=== PATIENT | male | born 1970 | race Caucasian/White ===

== ENCOUNTER 2020-09-18 19:55 | Emergency (ER) | payer SELFPAY ==
[2020-09-18] MEDS ORDERED: NORMAL SALINE 1000 ML 1,000 ML IV ONE (20:16)
[2020-09-18] MEDS ORDERED: HYDROMORPHONE HCL INJ/PF 2 MG/ML AMPULE IV ONE (20:16)
[2020-09-18] MEDS ORDERED: ONDANSETRON HCL INJ/PF 4 MG/2 ML SDV IV ONE (20:16)
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
[2020-09-18 20:32] LABS: HEMATOCRIT 35.9 % (37.9-51.0); HEMOGLOBIN 12.2 g/dL (13.5-17.0); MEAN CORPUSCULAR HEMOGLOBIN 31.8 pg (27.0-33.4); MEAN CORPUSCULAR VOLUME 94 fl (80-97); PLATELET COUNT 268 10^3/uL (150-450); RED BLOOD COUNT 3.84 10^6/uL (4.35-5.55); RED CELL DISTRIBUTION WIDTH 13.3 % (11.5-14.0); WHITE BLOOD COUNT 21.5 10^3/uL (4.0-10.5)
[2020-09-18 20:43] LABS: ALBUMIN 3.7 g/dL (3.5-5.0); ALKALINE PHOSPHATASE 53 U/L (38-126); ANION GAP 6 (5-19); ASPARTATE AMINO TRANSFERASE 28 U/L (17-59); BILIRUBIN,TOTAL 0.4 mg/dL (0.2-1.3); BLOOD UREA NITROGEN 21 mg/dL (7-20); CALCIUM 9.1 mg/dL (8.4-10.2); CARBON DIOXIDE 26 mmol/L (22-30); CHLORIDE 107 mmol/L (98-107); GLUCOSE 79 mg/dL (75-110); POTASSIUM 3.4 mmol/L (3.6-5.0); TOTAL PROTEIN 6.1 g/dL (6.3-8.2)
[2020-09-18 20:51] LABS: ABSOLUTE LYMPHOCYTES# (MANUAL) 3.7 10^3/uL (0.5-4.7); ABSOLUTE MONOCYTES # (MANUAL) 1.1 10^3/uL (0.1-1.4); BASOPHILS % (MANUAL) 0 % (0-2); EOSINOPHILS % (MANUAL) 1 % (0-6); LYMPHOCYTES % (MANUAL) 17 % (13-45); MONOCYTES % (MANUAL) 5 % (3-13); SEGMENTED NEUTROPHILS % (MAN) 77 % (42-78); TOTAL CELLS COUNTED 100
[2020-09-18 20:52] LABS: PLATELET COMMENT ADEQUATE; RBC MORPHOLOGY COMMENT NORMO-CYTIC/CHROMIC
--- NOTE | 2020-09-18 21:13 | RADIOLOGY REPORT (SQ) ---
EXAM DESCRIPTION: TIBIA FIBULA RIGHT RadLex: XR TIBIA FIBULA 2 VIEWS Views: 2 CLINICAL HISTORY: 50 years Male; fall; COMPARISON: None. FINDINGS: Negative for acute fracture, dislocation, or radiopaque foreign body. Surgical screws consistent with previous ACL repair are noted. IMPRESSION: 1. No acute findings.
--- NOTE | 2020-09-18 21:15 | RADIOLOGY REPORT (SQ) ---
EXAM DESCRIPTION: Site: CT CERVICAL SPINE WITHOUT RP: CT CERVICAL SPINE WITHOUT IV CONTRAST CLINICAL HISTORY: 50 years Male; fall; TECHNIQUE: Noncontrast cervical spine CT with sagittal and coronal reconstructions. All CT scans at this facility use dose modulation, iterative reconstruction, and/or weight based dosing when appropriate to reduce radiation dose to as low as reasonably achievable. COMPARISON: None FINDINGS: No subluxation. Chronic degenerative changes are noted. C3-C4: Osteophytic ridging with bilateral foraminal stenosis. C5-C6: Previous ACDF C6-C7: Osteophytic ridging with left foraminal stenosis There is no acute fracture of the cervical spine. No epidural hematoma. IMPRESSION: 1. No acute cervical spine fracture 2. Or chronic degenerative changes. Previous C5-C6 ACDF.
--- NOTE | 2020-09-18 21:17 | RADIOLOGY REPORT (SQ) ---
EXAM DESCRIPTION: Site: CT HEAD WITHOUT RP: CT HEAD WITHOUT IV CONTRAST CLINICAL HISTORY: 50 years Male; fall; TECHNIQUE: Noncontrast CT head. All CT scans at this facility use dose modulation, iterative reconstruction, and/or weight based dosing when appropriate to reduce radiation dose to as low as reasonably achievable. COMPARISON: None. FINDINGS: Brain: Mcmahan matter, white matter, ventricles, and cisterns are within normal limits. No acute hemorrhage or mass effect. Sinuses: Visualized portions of paranasal sinuses and mastoids are clear. There is left nasal septal deviation with pneumatized jesus bullosa of the right middle turbinate. Calvarium: No acute calvarial fractures or focal lesion. IMPRESSION: 1. No acute intracranial findings.
--- NOTE | 2020-09-18 21:22 | RADIOLOGY REPORT (SQ) ---
EXAM DESCRIPTION: CT CHEST WITH IV CONTRAST COMPLETED DATE/TME: 09/18/2020 20:57 CLINICAL HISTORY: 50 years, Male, fall COMPARISON: None. TECHNIQUE: Axial images with IV contrast. Sagittal coronal reconstruction. Images stored on PACS. All CT scanners at this facility use dose modulation, iterative reconstruction, and/or weight based dosing when appropriate to reduce radiation dose to as low as reasonably achievable (ALARA). FINDINGS: Central pulmonary arteries and aorta are unremarkable. Mild enlargement thickening of the left ventricle. No generalized cardiomegaly. No suspicious mediastinal adenopathy or mediastinal hematoma. No evidence for pericardial effusion. Lungs are mildly hyperinflated. Question subtle emphysematous changes in the upper lung cotto. Trachea and central bronchi are dilated often seen with chronic lung disease. No acute lung or pleural abnormalities. No suspicious bony lesion. IMPRESSION: 1. Hyperinflation suspected mild centrilobular emphysema. 2. No acute findings in the chest. TECHNICAL DOCUMENTATION: Quality ID # [id number]: Final reports with documentation of one or more dose reduction techniques (e.g., Automated exposure control, adjustment of the mA and/or kV according to patient size, use of iterative reconstruction technique) copyright 2010 [email or web address]- All Rights Reserved
--- NOTE | 2020-09-18 21:29 | RADIOLOGY REPORT (SQ) ---
EXAM DESCRIPTION: CT ABDOMEN PELVIS WITH IV CONTRAST COMPLETED DATE/TME: 09/18/2020 20:57 CLINICAL HISTORY: 50 years, Male, fall COMPARISON: None. TECHNIQUE: Study performed with 87 mm of Omnipaque 350. Sagittal coronal reconstruction. Images stored on PACS. All CT scanners at this facility use dose modulation, iterative reconstruction, and/or weight based dosing when appropriate to reduce radiation dose to as low as reasonably achievable (ALARA). FINDINGS: Liver, spleen, pancreas, biliary system, adrenal glands, kidneys, periarticular regions are unremarkable. Early atherosclerotic aorta. No suspicious dilatation of narrowing. Distended stomach with fluid. Mildly increased fluid in the small bowel loops. Colonic loops with mild increased stool in without acute findings. No suspicious acute spine abnormality. Nonprominent degenerative changes at L4-5. CT of the pelvis demonstrates tiny right inguinal hernia with minimal herniation of fluid. Otherwise no evidence for free fluid. Mild increased colonic stool. Mild atherosclerotic disease. No adenopathy. Bony pelvis without acute findings. Mild widening of the femoral head/neck junction suspicious for femoral acetabular impingement cam-type. IMPRESSION: 1. No acute findings related to trauma in the abdomen and pelvis. 2. Early atherosclerotic disease. 3. 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 TECHNICAL DOCUMENTATION: Quality ID # [id number]: Final reports with documentation of one or more dose reduction techniques (e.g., Automated exposure control, adjustment of the mA and/or kV according to patient size, use of iterative reconstruction technique) copyright 2010 [email or web address]- All Rights Reserved
[2020-09-18] MEDS ORDERED: CEPHALEXIN 500 MG CAPSULE PO ONE (21:59)
[2020-09-18] MEDS ORDERED: HYDROCODONE/ACETAMINOPHEN 5-325 MG (6 TAB/ER DISP) PO PRN (22:00)
[2020-09-18] MEDS ORDERED: ONDANSETRON ODT 4 MG TAB (6 TAB/ER DISP) PO PRN (22:00)
[2020-09-18 22:52] VITALS: BP 117/76
== END 2020-09-18 22:52 | disposition home or self-care (01) ==
LOC: ER 19:55
DX: S80.11XA Contusion of right lower leg, initial encounter (principal); S80.811A Abrasion, right lower leg, initial encounter; M54.2 Cervicalgia; M79.661 Pain in right lower leg; M25.511 Pain in right shoulder; M25.512 Pain in left shoulder; R51.9 Headache, unspecified; M54.5 Low back pain; W11.XXXA Fall on and from ladder, initial encounter; Y92.89 Other specified places as the place of occurrence of the external cause; Y99.0 Civilian activity done for income or pay; D72.829 Elevated white blood cell count, unspecified; J43.9 Emphysema, unspecified; M47.812 Spondylosis without myelopathy or radiculopathy, cervical region; R55 Syncope and collapse; L43.9 Lichen planus, unspecified; I70.0 Atherosclerosis of aorta; F17.210 Nicotine dependence, cigarettes, uncomplicated; F12.10 Cannabis abuse, uncomplicated; B19.20 Unspecified viral hepatitis C without hepatic coma; Z98.1 Arthrodesis status; Z98.890 Other specified postprocedural states; Z20.828 Contact with and (suspected) exposure to other viral communicable diseases
CPT/HCPCS: 99285; 96361; 96374; 96375; 36415; 87070; 87880; 85025; 87635; 80053; 73590; 70450; 71260; 72125; 74177; J1170; J2405; J7030; C9803